=== PATIENT | female | born 2000 | race Caucasian/White ===

== ENCOUNTER 2022-07-08 13:32 | Emergency (ER) | payer OTHER, SELFPAY ==
[2022-07-08 13:33] VITALS: BP 108/85; PULSE 106; RESP 15; TEMP 36.7; O2SAT 98; BMI 19.7
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
[2022-07-08] MEDS: Rabies Immune Globulin/PF 300 UNIT/ML, 1 ML VIAL 1140 UNIT IM (14:39)
[2022-07-08] MEDS: Rabies Vaccine,Human Diploid 2.5 UNITS Vial IM (14:39)
== END 2022-07-08 15:15 | disposition home or self-care (01) ==
PROVIDERS: Emergency Provider Emergency Medicine; PCP Pediatrics; Visit Provider Emergency Medicine
DX: Z20.3 Contact with and (suspected) exposure to rabies (principal)
CPT/HCPCS: 90375; 90675; 96372; 99282

== ENCOUNTER 2022-07-11 15:31 | Outpatient (CLI) | payer OTHER, SELFPAY ==
[2022-07-11 15:31] VITALS: BP 106/75; PULSE 108; PULSE 98; RESP 15; TEMP 36.1; O2SAT 97; O2SAT 98; BMI 19.7
[2022-07-11] MEDS: Rabies Vaccine,Human Diploid 2.5 UNITS Vial IM (16:15)
== END 2022-07-11 16:41 | disposition home or self-care (01) ==
PROVIDERS: PCP Pediatrics; Visit Provider Student in an Organized Health Care Education/Training Program
DX: Z23 Encounter for immunization (principal)
CPT/HCPCS: 90675; 96372

== ENCOUNTER 2022-07-15 13:55 | Outpatient (CLI) | payer OTHER, SELFPAY ==
[2022-07-15 13:56] VITALS: BP 98/76; PULSE 92; PULSE 98; RESP 16; TEMP 36.7; O2SAT 97; BMI 19.4
[2022-07-15] MEDS: Rabies Vaccine,Human Diploid 2.5 UNITS Vial IM (14:36)
== END 2022-07-15 15:23 | disposition home or self-care (01) ==
PROVIDERS: PCP Pediatrics; Visit Provider Emergency Medicine
DX: Z23 Encounter for immunization (principal)
CPT/HCPCS: 90675; 96372

== ENCOUNTER 2022-07-22 14:30 | Outpatient (CLI) | payer OTHER, SELFPAY ==
[2022-07-22 14:31] VITALS: BP 103/72; PULSE 86; RESP 15; TEMP 36.1; O2SAT 100; BMI 19.5
[2022-07-22] MEDS: Rabies Vaccine,Human Diploid 2.5 UNITS Vial IM (15:30)
[2022-07-22 15:35] VITALS: BMI 19.5
== END 2022-07-22 16:37 | disposition home or self-care (01) ==
PROVIDERS: PCP Pediatrics; Visit Provider Emergency Medicine
DX: Z23 Encounter for immunization (principal)
CPT/HCPCS: 90675; 96372

== ENCOUNTER 2022-08-02 14:06 | Emergency (ER) | payer OTHER, SELFPAY ==
[2022-08-02 14:06] VITALS: BP 107/74; PULSE 98; RESP 16; TEMP 36.4; O2SAT 97; BMI 19.5
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
--- NOTE | 2022-08-02 14:42 | EDS_ITS ---
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 The patient reports that her brother recently tried to commit suicide. She states that her brother is slightly older than her. They have a contentious relationship. She does not know much information about the attempt. She states that school is a stressor. She reports that she has a specific plan of overdosing or cutting herself. She has begun self cutting behavior of the left forearm. She has numerous psychiatric medications in her room that she has thought about overdosing on. She is from [facility]. She was unable to contract for safety while being evaluated at the [facility] Medical History Depression GERD (gastroesophageal reflux disease) Allergy/AdvReac Type Severity Reaction Status Date / Time No Known Allergies Allergy Verified 08/02/22 14:06 Social History Smoking Status: Never smoker substance use type: does not use ROS ROS ED Constitutional Constitutional ED: Denies chills or weight loss Eyes Eyes: Denies change in vision or diplopia ENT ENT ED: Denies ear pain, rhinorrhea or sore throat Cardiovascular Cardiovascular: Denies chest pain, orthopnea, palpitations or racing heartbeat Respiratory/Chest Respiratory/Chest: Denies cough, dyspnea or orthopnea Gastrointestinal Gastrointestinal: Denies abdominal pain, diarrhea, nausea or vomiting Genitourinary Genitourinary ED: Denies dysuria, hematuria or urinary frequency Musculoskeletal Musculoskeletal: Denies arthralgias or myalgias Integumentary Reports Abrasions; Denies abscess or rash Neurologic Neurologic: Denies headache(s) or weakness Psychiatric Psychiatric: Reports depression, suicidal ideation and suicidal thoughts; Denies anxiety Endocrine Endocrinology: Denies polydipsia, polyphagia or polyuria Allergic/Immunologic Allergic/Immunologic ED: Denies mouth swelling, tongue swelling or urticaria EXAM Physical Exam Const Vital Signs: 08/02/22 14:06 Temperature 97.5 F L Temperature Source Temporal Pulse Rate 98 Respiratory Rate 16 Blood Pressure 107/74 Blood Pressure Mean 85 Pulse Ox 97 Oxygen Delivery Method Room Air Positive well nourished and well developed General Appearance ED: well developed HEENT Reports normocephalic, head/scalp atraumatic and moist mucous membranes Eyes PERRL and EOMs intact bilaterally Neck no lymphadenopathy, supple and no JVD Resp normal respiratory effort and clear to auscultation bilaterally Cardio regular rate, regular rhythm and no murmurs GI normal to inspection, nondistended, normoactive bowel sounds and non-tender Palpation: soft Back/Spine no CVA tenderness and normal ROM Extremity normal to inspection General Extremety ED: Negative for edema General Extremity: Negative for edema Neuro oriented x3 and CN's II-XII intact bilaterally Sensorium / Orientation: alert Motor Exam: strength 5/5 throughout Psych mental status grossly normal Appearance: grossly normal Attitude: calm Activity / Motor Behavior: appropriate eye contact Speech: normal speech Mood & Affect: depressed and sad; Negative for tearful Thought Process: normal thought process Thought Content: normal thought content Attention / Concentration: attention grossly intact Memory / Cognition: memory grossly intact Skin no rashes or lesions noted Skin Narrative: There are superficial abrasions in a linear pattern along the left forearm. There is no evidence of infection. MDM MDM MDM Narrative Medical decision making narrative: Medical screening labs were obtained and negative. Toxicology results below. Patient is medically cleared for psychiatric assessment. She was evaluated by case management who recommends transfer to psychiatric facility. We will work towards this goal. Lab Data Attestation: I reviewed the patient's lab results. Labs: Laboratory Results - last 24 hr 08/02/22 08/02/22 08/02/22 14:50 14:50 14:50 WBC 11.4 H RBC 4.97 Hgb 14.4 Hct 45.3 MCV 91.1 MCH 29.0 MCHC 31.8 L RDW Std Deviation 39.8 RDW Coeff of Buddy 12.0 Plt Count 369 MPV 10.3 Immature Gran % (Auto) 0.600 Neut % (Auto) 64.7 Lymph % (Auto) 27.5 Morris % (Auto) 5.8 Eos % (Auto) 1.3 Baso % (Auto) 0.1 Absolute Neuts (auto) 7.4 Absolute Lymphs (auto) 3.14 Nucleated RBC % 0 Sodium Potassium Chloride Carbon Dioxide Anion Gap BUN Creatinine Estim Creat Clear Calc Est GFR (MDRD) Af Amer Est GFR (MDRD) Non-Af BUN/Creatinine Ratio Glucose Calcium Total Bilirubin AST ALT Alkaline Phosphatase Total Protein Albumin Globulin Albumin/Globulin Ratio Serum , Qual Urine Opiates Screen NEGATIVE Urine Methadone Screen NEGATIVE Ur Barbiturates Screen NEGATIVE Ur Phencyclidine Scrn NEGATIVE Ur Amphetamines Screen NEGATIVE MDMA (Ecstasy) Screen POSITIVE H U Benzodiazepines Scrn NEGATIVE Urine Cocaine Screen NEGATIVE U Cannabinoids Screen POSITIVE H Ur Drug Screen Comment Ethyl Alcohol 3.0 08/02/22 08/02/22 14:50 14:50 WBC RBC Hgb Hct MCV MCH MCHC RDW Std Deviation RDW Coeff of Buddy Plt Count MPV Immature Gran % (Auto) Neut % (Auto) Lymph % (Auto) Morris % (Auto) Eos % (Auto) Baso % (Auto) Absolute Neuts (auto) Absolute Lymphs (auto) Nucleated RBC % Sodium 139 Potassium 4.0 Chloride 105 Carbon Dioxide 27.0 Anion Gap 7 BUN 9 Creatinine 0.89 Estim Creat Clear Calc 91.00 Est GFR (MDRD) Af Amer 104 Est GFR (MDRD) Non-Af 86 BUN/Creatinine Ratio 10.1 Glucose 79 Calcium 9.4 Total Bilirubin 0.30 AST 14 L ALT 25 Alkaline Phosphatase 74 Total Protein 8.1 Albumin 3.8 Globulin 4.3 H Albumin/Globulin Ratio 0.9 Serum , Qual NEGATIVE Urine Opiates Screen Urine Methadone Screen Ur Barbiturates Screen Ur Phencyclidine Scrn Ur Amphetamines Screen MDMA (Ecstasy) Screen U Benzodiazepines Scrn Urine Cocaine Screen U Cannabinoids Screen Ur Drug Screen Comment Ethyl Alcohol EKG Initial EKG: Attestation: I personally reviewed and interpreted this EKG as follows: Comments: Normal sinus rhythm ventricular rate of 81 bpm Discharge Plan Triage Chief Complaint: Suicidal ED Provider: Dominick Mims Dx/Rx/DC Orders Clinical Impression: Depression, Suicidal ideation, Deliberate self-cutting, Abrasion of arm, left Primary Care Provider: Tony Ch Referrals: Tony Ch MD [Primary Care Provider] -
[2022-08-02 15:10] LABS: Absolute Lymphocyte Count 3.14 X10^3/uL (0.83-4.51); Absolute Neutrophil Count 7.4 X10^3/uL (2.0-7.7); Basophil# 0.01 X10^3/uL; Basophil% 0.1 % (0-1); Eosinophil# 0.15 X10^3/uL; Eosinophils% 1.3 % (0-5); Hematocrit 45.3 % (37-47); Hemoglobin 14.4 g/dL (12.0-15.0); Lymphocyte # 3.14 X10^3/ul (0.83-4.51); Lymphocyte % 27.5 % (19-41); Mean Corp Hgb Conc 31.8 g/dL (32-36); Mean Corpuscular Volume 91.1 fL (81-99); Mean Platelet Vol. 10.3 fl (6.2-12.0); Monocyte# 0.66 X10^3/uL; Monocyte% 5.8 % (0-10); NRBC Flagged by Analyzer 0 % (0-5); Neutrophil # 7.37 X10^3/uL (2.7-7.7); Neutrophil % 64.7 % (47-70); Platelet Count 369 K/mm3 (150-450); RBC Distribution Width SD 39.8 fl (35.1-43.9); Red Blood Count 4.97 M/mm3 (4.2-5.4); White Blood Count 11.4 K/mm3 (4.4-11.0)
[2022-08-02 15:11] LABS: Internal QC Validated? YES +Cl - CLEAR BKGD; Pregnancy, Serum, hCG Quali. NEGATIVE Negative
[2022-08-02 15:16] LABS: Amphetamine Urine VISTA NEGATIVE (<1000 ng/mL); Barbiturate Urine VISTA NEGATIVE (< 200 ng/mL); Benzodiazepine Urine VISTA NEGATIVE (< 200 ng/mL); Cocaine Urine VISTA NEGATIVE (< 300 ng/mL); Ecstacy Urine VISTA POSITIVE (< 500 ng/mL); Methadone Urine VISTA NEGATIVE (< 300 ng/mL); PCP Urine VISTA NEGATIVE (< 25 ng/mL); THC Urine VISTA POSITIVE (< 50 ng/mL); Vista UDS pH Range 5
[2022-08-02 15:21] LABS: ALB/GLOB Ratio 0.9 RATIO (0.9-2.4); AST(SGOT) 14 U/L (15-37); Alanine Aminotransfer ALT/SGPT 25 U/L (13-56); Albumin, Serum 3.8 g/dL (3.2-5.0); Alkaline Phosphatase 74 U/L (45-117); Anion Gap 7 (5-15); BUN 9 mg/dL (7-18); BUN/Creat Ratio 10.1 RATIO (10-20); Calcium,Total 9.4 mg/dL (8.5-10.1); Chloride 105 mmol/L (98-107); Creatinine, Serum 0.89 mg/dL (0.55-1.02); EST Glomerular Filtration Rate 86 mL/min (>60); Est Glom Filt Rate - Afr Amer 104 mL/min (>60); Globulin 4.3 g/dL (2.2-4.2); Glucose 79 mg/dL (74-106); Protein, Total 8.1 g/dL (6.4-8.2); Sodium Level 139 mmol/L (136-145)
--- NOTE | 2022-08-02 15:49 | EKG12_ITS ---
Test Reason : Blood Pressure : / mmHG Vent. Rate : 081 BPM Atrial Rate : 081 BPM P-R Int : 122 ms QRS Dur : 086 ms QT Int : 368 ms P-R-T Axes : 055 091 063 degrees QTc Int : 427 ms Normal sinus rhythm Normal ECG Confirmed by MITCHELL BARTON, OLU ([id number]), managing editor OLY MARTINES ([id number]) on 08/05/2022 10:09:20 AM Referred By: Confirmed By:OLU MEDRANO MD
--- NOTE | 2022-08-02 16:25 | CM.ED ---
MICHELLE called [employer] at 3:45, 3:46 and 3:49 and received the same message we are experiencing higher than normal calls please call back laterand line disconnects. MICHELLE went on line and noted that the network provider is [facility]. MICHELLE called Mariia at [facility]. The only provider in 100 miles are [facility] in [place] ([facility]) and [facility] [place]. SW requested name of the Inpatient Psych Treatment and Mariia said that was the name of the facility. MICHELLE explained that [facility] and that the other facility SW requested lookup for over 100 miles and Mariia said that they only have the ability to look up for 100 miles. Mariia advised to call [facility] at [phone] . MICHELLE called [facility] and received the same message about higher than calls and disconnects. MICHELLE called nurse line and was switched to Mazin at [facility] who stated that patient does not have optimum for behavioral health benefits. MICHELLE called Concha at [facility] and she said [facility] is not [facility] referral to [facility], [facility] and [facility]. MICHELLE received call from [facility]. Patient's insurance is out of network. MICHELLE received call from [facility] requesting call back. MICHELLE called Wendy at [facility] and she said that she was calling for acceptance. Zoe said 2x that they got approval from the insurance company for treatment (MICHELLE made sure to clarify and asked 2x) and patient will be accepted by Dr. Samaniego. Going to the Dual Diagnosis unit. RN to RN is [phone]. completed pink slip and transfer form. MICHELLE called Hardeep at [facility] and updated her regarding patient going to [facility]. Brit, unit aid will schedule transport. MICHELLE called [facility] and said no bed is needed. Plan: [facility] Lisa BETANCOURT
--- NOTE | 2022-08-02 16:56 | NURSING ---
SPOKE WITH GRISELDA FROM [facility], ETA OF 9PM AT THIS TIME
--- NOTE | 2022-08-02 17:08 | CM.ED ---
MICHELLE spoke to patient and advised she is going to [facility]. Lisa BETANCOURT
--- NOTE | 2022-08-02 17:16 | ED.RN ---
Report given to [facility]OP.
[2022-08-02 20:43] VITALS: BP 110/89; PULSE 64; RESP 18; O2SAT 99
[2022-08-02] MEDS: busPIRone 5 MG Tablet 2.5 MG PO (20:43)
== END 2022-08-02 21:14 ==
PROVIDERS: Emergency Provider Emergency Medicine; PCP Pediatrics; Visit Provider Emergency Medicine
DX: R45.851 Suicidal ideations (principal); X78.9XXA Intentional self-harm by unspecified sharp object, initial encounter; F32.A Depression, unspecified; S40.812A Abrasion of left upper arm, initial encounter
CPT/HCPCS: 80053; 80307; 82077; 84703; 85025; 87811; 93005; 99284

== ENCOUNTER 2023-07-15 23:38 | Emergency (ER) | payer OTHER, SELFPAY ==
[2023-07-15 23:39] VITALS: BP 120/94; PULSE 88; RESP 16; TEMP 36.1; O2SAT 98; BMI 21.9
--- NOTE | 2023-07-15 23:55 | EKG12_ITS ---
Test Reason : [facility] Blood Pressure : / mmHG Vent. Rate : 084 BPM Atrial Rate : 084 BPM P-R Int : 136 ms QRS Dur : 088 ms QT Int : 374 ms P-R-T Axes : 065 084 060 degrees QTc Int : 441 ms Normal sinus rhythm Normal ECG Confirmed by MITCHELL BARTON, OLU ([id number]), offline editor STAR LEE ([id number]) on 08/19/2023 1:36:33 PM Referred By: Confirmed By:OLU MEDRANO MD
[2023-07-16] VITALS (8 sets, daily range): BP systolic 101–133; BP diastolic 68–94; PULSE 81–94; RESP 12–20; O2SAT 16–99
[2023-07-16] MEDS: Activated Charcoal/Sorbitol 50 GM/240 ML BOT PO (00:18)
[2023-07-16] MEDS: 0.9% Normal Saline (1000mL) 1,000 ML 150 ML IV ×2 (00:18→06:56)
--- NOTE | 2023-07-16 00:19 | EX.ED.VIS.PS ---
HPI HPI - Psych History of Present Illness Chief Complaint: Suicidal Detail of Chief Complaint: Intentional overdose Informant: patient Narrative Narrative: Patient presents after intentional overdose of Zoloft. Patient estimates that at approximately 1 PM she took some between 35 and 40 tablets of Zoloft, 100 mg each. She states she did this in an attempt to kill herself. [facility] to [facility]. Patient states that she had suicidal thoughts before but never actually acted on them. She has been on Zoloft for quite some time and usually takes 200 mg daily. At this time patient complains of mild upset stomach, although she does also report a history of GERD. [facility] Medical History Depression GERD (gastroesophageal reflux disease) Home Medications buspirone 5 mg tablet 5 mg PO TID 08/02/22 [History Last Taken Unknown] sertraline 100 mg tablet (Zoloft) 200 mg PO DAILY 08/02/22 [History Last Taken Unknown] aripiprazole 5 mg tablet (Abilify) 5 mg PO DAILY 07/16/23 [History Last Taken Unknown] bupropion HCl PO DAILY 07/16/23 [History Last Taken Unknown] omeprazole 20 mg capsule,delayed release 20 mg PO DAILY PRN gastric reflux 07/16/23 [History Last Taken Unknown] Allergy/AdvReac Type Severity Reaction Status Date / Time Milk Containing Products AdvReac Mild Diarrhea Verified 07/15/23 23:50 (Dairy) Social History (Updated 07/16/23 @ 00:[address] Karli Giraldo MD) Smoking Status: Current every day smoker tobacco type: e-cigarettes alcohol intake: current alcohol intake frequency: a few times a month substance use type: marijuana ROS ROS ED Constitutional Constitutional ED: Denies chills or fever(s) Eyes Eyes: Denies change in vision or discharge from eye(s) ENT ENT ED: Denies discharge from eye(s), rhinorrhea or sore throat Cardiovascular Cardiovascular: Denies chest pain or palpitations Respiratory/Chest Respiratory/Chest: Denies cough or dyspnea Gastrointestinal Gastrointestinal: Reports abdominal pain; Denies diarrhea, nausea or vomiting Genitourinary Genitourinary ED: Denies dysuria Musculoskeletal Musculoskeletal: Denies back pain or extremity pain Integumentary Denies Abrasions or rash Neurologic Neurologic: Denies headache(s) or weakness Psychiatric Psychiatric: Reports anxiety, depression and suicidal ideation Endocrine Endocrinology: Denies polydipsia or polyuria Allergic/Immunologic Allergic/Immunologic ED: Denies lip swelling or urticaria EXAM Physical Exam Narrative Exam Narrative: Patient sitting upright in bed no distress. Alert and talkative. Const Vital Signs: 07/15/23 23:39 07/16/23 00:19 07/16/23 01:00 Temperature 97 F L Temperature Source Temporal Pulse Rate 88 94 87 Respiratory Rate 16 12 16 Blood Pressure 120/94 H 133/94 H 124/91 H Blood Pressure Mean 102 107 102 Pulse Ox 98 98 99 Oxygen Delivery Method Room Air Room Air 07/16/23 02:00 07/16/23 03:00 07/16/23 04:00 Temperature Temperature Source Pulse Rate 92 92 87 Respiratory Rate 12 15 20 H Blood Pressure 106/68 108/73 107/74 Blood Pressure Mean 80 84 85 Pulse Ox 16 99 99 Oxygen Delivery Method Room Air Room Air Room Air 07/16/23 05:00 Temperature Temperature Source Pulse Rate 82 Respiratory Rate 17 Blood Pressure 108/76 Blood Pressure Mean 86 Pulse Ox 99 Oxygen Delivery Method Room Air Positive well nourished and well developed General Appearance ED: well developed HEENT Reports moist mucous membranes Eyes EOMs intact bilaterally Neck no lymphadenopathy Resp normal respiratory effort and clear to auscultation bilaterally Cardio Rate: regular rate Rhythm: regular rhythm GI non-tender Auscultation: normoactive bowel sounds Palpation: soft Extremity normal to inspection Neuro oriented x3 and no sensory deficits noted Sensorium / Orientation: alert Motor Exam: strength 5/5 throughout Psych mental status grossly normal and cooperative Appearance: appropriate Attitude: calm Activity / Motor Behavior: appropriate eye contact Thought Content: suicidality MDM MDM MDM Narrative Medical decision making narrative: Patient placed on cardiac cath technologist. Labwork obtained to evaluate for leukocytosis, anemia, and electrolyte derangement. EKG obtained to evaluate for cardiac arrhythmia/ischemia. Patient did agree to take charcoal and this has been ordered. I spoke with poison control at midnight, just after seeing the patient. They do describe risk of serotonin syndrome as well as seizures. These would be treated with benzos if that should occur. Patient should also be monitored for QTc prolongation. They recommend 6 to 8 hours of observation. History & Record Review Discussion w/independent historian: Patient Lab Data Attestation: I reviewed the patient's lab results. Labs: Laboratory Results - last 24 hr 07/16/23 00:05 WBC 10.3 RBC 4.82 Hgb 14.0 Hct 43.0 MCV 89.2 MCH 29.0 MCHC 32.6 RDW Std Deviation 39.7 RDW Coeff of Buddy 12.2 Plt Count 324 MPV 11.0 Immature Gran % (Auto) 0.400 Neut % (Auto) 58.6 Lymph % (Auto) 30.7 Schleicher % (Auto) 6.9 Eos % (Auto) 3.2 Baso % (Auto) 0.2 Absolute Neuts (auto) 6.1 Absolute Lymphs (auto) 3.17 Nucleated RBC % 0 Sodium 139 Potassium 3.5 Chloride 107 Carbon Dioxide 26.0 Anion Gap 6 BUN 9 Creatinine 0.90 Estim Creat Clear Calc 96.96 Est GFR (MDRD) Af Amer 102 Est GFR (MDRD) Non-Af 84 BUN/Creatinine Ratio 10.0 Glucose 88 Calcium 9.3 Magnesium 2.0 Total Bilirubin 0.20 AST 17 ALT 20 Alkaline Phosphatase 76 Total Protein 7.5 Albumin 3.7 Globulin 3.8 Albumin/Globulin Ratio 1.0 Serum , Qual NEGATIVE Salicylates < 1.7 L Urine Opiates Screen NEGATIVE Urine Methadone Screen NEGATIVE Acetaminophen < 2.0 L Ur Barbiturates Screen NEGATIVE Ur Phencyclidine Scrn NEGATIVE Ur Amphetamines Screen NEGATIVE MDMA (Ecstasy) Screen POSITIVE H U Benzodiazepines Scrn NEGATIVE Urine Cocaine Screen NEGATIVE U Cannabinoids Screen POSITIVE H Ur Drug Screen Comment Ethyl Alcohol < 3.0 EKG Initial EKG: Attestation: I personally reviewed and interpreted this EKG as follows: Interpretation: Sinus Rhythm (Sinus 84 with no acute ischemia. QTc is normal at 441.) Treatment and Re-Evaluation Narrative: CBC reveals normal white count at 10.3 with a hemoglobin of 14.0. Chemistry studies are unremarkable. test negative. Salicylate and acetaminophen levels are negative. Urine tox screen is positive for MDMA and cannabinoids. EtOH is less than 3. LFTs are normal. EKG is sinus rhythm at 84 bpm with normal QTc. Patient has been observed in the emergency room for the last 6 hours. Vital signs remained stable and patient has had no significant complaints. At this time she is alert and appropriate visiting with a friend in her room. Patient's observation period will be completed at 7 AM. At this time she is cleared for psychiatric evaluation and probable placement. Patient was signed out to oncoming physician for further observation. Discharge Plan Triage Chief Complaint: Suicidal ED Provider: Karli Giraldo Dx/Rx/DC Orders Clinical Impression: Intentional overdose, Suicide attempt Prescriptions: No Action buspirone [BuSpar] 5 mg Tablet 5 mg PO TID sertraline [Zoloft] 100 mg Tablet 200 mg PO DAILY aripiprazole [Abilify] 5 mg tablet 5 mg PO DAILY bupropion HCl [Wellbutrin SR] PO DAILY omeprazole 20 mg capsule,delayed release(DR/EC) 20 mg PO DAILY PRN (Reason: gastric reflux) Primary Care Provider: Shailesh Garcia Referrals: Tony Ch MD [Non-Staff] - Disposition Disposition: Psychiatric Hospital or Unit
[2023-07-16] MEDS: Metoclopramide 10 MG/2 ML Vial 5 MG IV (00:36)
[2023-07-16 01:01] LABS: Internal QC Validated? YES +Cl - CLEAR BKGD; Pregnancy, Serum, hCG Quali. NEGATIVE Negative; Record Kit Lot#, Serum Preg. HCG0000667200
[2023-07-16 01:06] LABS: Acetaminophen (Tylenol) Level < 2.0 ug/mL (10.0-30.0); Alcohol, Blood (Medical)-Serum < 3.0 mg/dL; Salicylate < 1.7 mg/dL (2.8-20.0)
[2023-07-16 01:09] LABS: AST(SGOT) 17 U/L (15-37); Alanine Aminotransfer ALT/SGPT 20 U/L (13-56); Albumin, Serum 3.7 g/dL (3.2-5.0); Alkaline Phosphatase 76 U/L (45-117); Anion Gap 6 (5-15); BUN 9 mg/dL (7-18); Calcium,Total 9.3 mg/dL (8.5-10.1); Chloride 107 mmol/L (98-107); EST Glomerular Filtration Rate 84 mL/min (>60); Est Glom Filt Rate - Afr Amer 102 mL/min (>60); Estimated Creatinine Clearance 96.96 ml/min; Globulin 3.8 g/dL (2.2-4.2); Glucose 88 mg/dL (74-106); Potassium 3.5 mmol/L (3.5-5.1); Protein, Total 7.5 g/dL (6.4-8.2); Sodium Level 139 mmol/L (136-145)
[2023-07-16 01:12] LABS: Amphetamine Urine VISTA NEGATIVE (<1000 ng/mL); Barbiturate Urine VISTA NEGATIVE (< 200 ng/mL); Benzodiazepine Urine VISTA NEGATIVE (< 200 ng/mL); Cocaine Urine VISTA NEGATIVE (< 300 ng/mL); Ecstacy Urine VISTA POSITIVE (< 500 ng/mL); Methadone Urine VISTA NEGATIVE (< 300 ng/mL); PCP Urine VISTA NEGATIVE (< 25 ng/mL); THC Urine VISTA POSITIVE (< 50 ng/mL); Vista UDS pH Range 6
[2023-07-16 01:37] LABS: Absolute Lymphocyte Count 3.17 X10^3/uL (0.83-4.51); Absolute Neutrophil Count 6.1 X10^3/uL (2.0-7.7); Basophil# 0.02 X10^3/uL; Basophil% 0.2 % (0-1); Eosinophil# 0.33 X10^3/uL; Eosinophils% 3.2 % (0-5); Lymphocyte # 3.17 X10^3/ul (0.83-4.51); Lymphocyte % 30.7 % (19-41); Mean Corp Hgb Conc 32.6 g/dL (32-36); Mean Corpuscular Volume 89.2 fL (81-99); Monocyte# 0.71 X10^3/uL; Monocyte% 6.9 % (0-10); NRBC Flagged by Analyzer 0 % (0-5); Neutrophil # 6.07 X10^3/uL (2.7-7.7); Neutrophil % 58.6 % (47-70); Platelet Count 324 K/mm3 (150-450); RBC Distribution Width CV 12.2 % (11.6-14.6); RBC Distribution Width SD 39.7 fl (35.1-43.9); Red Blood Count 4.82 M/mm3 (4.2-5.4); White Blood Count 10.3 K/mm3 (4.4-11.0)
--- NOTE | 2023-07-16 09:35 | ED.RN ---
SPOKE WITH MOTHER ON PHONE, MOTHER VOICED HER CONCERNS ABOUT BEING PLACED SHE HAD A BAD EXPERIENCE WITH PLACEMENT IN THE PAST. THIS RN GAVE MOTHER THE PHONE NUMBER TO THE [facility]IS [facility] TO SPEAK WITH SOMEONE THERE ABOUT.
--- NOTE | 2023-07-16 11:40 | ED.RN ---
[facility] WITH [facility]SELING [facility] HAS REFERRED PT TO [facility], FAYE WISE AND SADIE.
--- NOTE | 2023-07-16 12:33 | CM.ED ---
Social Work SW received VM from Jeanna, counselor at the [facility]. SW returned call. Counselor reports she was dispersion mixer and involved with patient. Requesting placement information to provide support. Pt receives counseling through the [facility]. SW notified that referrals have been made but placement has not occurred yet. SW to call when placement obtained. SW received call from Crisis due to needing more insurance information. Copy of insurance card obtained from registration and faxed to crisis. Pt has out of state insurance and may be a difficult placement due to being out of network at many facilities. Past placement obtained with [facility] and patient had a poor experience. Information of past referrals and declines provided to crisis to assist with placement. Ashtyn Mae [employer], HOME PER[employer]MANCE [employer]ORER
--- NOTE | 2023-07-16 14:40 | ED.RN ---
1430: Report called to [facility].
== END 2023-07-16 15:24 ==
PROVIDERS: Emergency Provider Emergency Medicine; PCP Family Medicine; Visit Provider Emergency Medicine
DX: T43.222A Poisoning by selective serotonin reuptake inhibitors, intentional self-harm, initial encounter (principal); F32.A Depression, unspecified; Z79.899 Other long term (current) drug therapy; F17.290 Nicotine dependence, other tobacco product, uncomplicated
CPT/HCPCS: 80053; 80307; 80329; 82077; 83735; 84703; 85025; 87428; 87633; 93005; 96361; 96374; 99285; J7030; A4216; G0480